=== PATIENT | male | born 1970 | race African-American/Black ===

== ENCOUNTER 2024-04-21 04:19 | Inpatient (IN) | payer OTHER ==
[~2024-04-21] VITALS: Ht 177.8 cm; Wt 123.8 kg
[2024-04-21] MEDS ORDERED: SODIUM CHLORIDE 0.9% 100 ML ONE (04:41)
[2024-04-21] MEDS ORDERED: IOHEXOL 350 MG/ML 100 ML VIAL ONE (04:41)
[2024-04-21 05:04] LABS: BASOPHILS % (AUTO) 0.8 % (0.0-2.0); EOSINOPHILS % (AUTO) 3.2 % (1.0-6.0); HEMATOCRIT 43.6 % (41-53); HEMOGLOBIN 14.9 g/dL (13.5-17.5); LYMPHOCYTES # (AUTO) 3.8 K/uL (1.0-4.8); LYMPHOCYTES % (AUTO) 37.4 % (22.0-44.0); MEAN CORPUSCULAR HGB CONC 34.1 G/dL (31.0-37.0); MEAN CORPUSCULAR VOLUME 94 fL (80-100); MONOCYTES # (AUTO) 1.2 K/uL (0.1-1.0); MONOCYTES % (AUTO) 11.8 % (2.0-9.0); NEUTROPHILS # (AUTO) 4.8 K/uL (1.8-7.7); NEUTROPHILS % (AUTO) 46.8 % (40.0-70.0); PLATELET COUNT (AUTO) 254 K/uL (150-450); RED BLOOD CELL COUNT(AUTO) 4.64 MIL/uL (4.50-5.90); RED CELL DISTRIBUTION WIDTH 13.7 % (11.5-14.5); WHITE BLOOD COUNT (AUTO) 10.2 K/uL (4.5-11.0)
[2024-04-21 05:13] LABS: ANION GAP 8 mmol/L (8-16); CALCIUM, TOTAL 8.3 mg/dL (8.8-10.5); CARBON DIOXIDE 28 mmol/L (22-29); CHLORIDE 104 mmol/L (98-107); CREATININE 1.06 mg/dL (0.60-1.30); GLOMERULAR FILTR. RATE CALC > 60 mL/min (>60); GLUCOSE,RANDOM 86 mg/dL (70-110); POTASSIUM 3.7 mmol/L (3.5-5.1); SODIUM SERUM 140 mmol/L (136-145); UREA NITROGEN, BLOOD 7 mg/dL (7-18)
[2024-04-21 05:15] LABS: PROTHROMBIN TIME 11.4 SEC (9.4-11.6)
[2024-04-21 05:19] LABS: ALANINE AMINOTRANSFERASE 27 U/L (12-78); ALBUMIN 3.6 g/dL (3.4-5.0); ALKALINE PHOSPHATASE 97 U/L (46-116); ASPARTATE AMINOTRANSFERASE 48 U/L (15-37); BILIRUBIN,TOTAL 0.5 mg/dL (0.1-1.0); TOTAL PROTEIN, SERUM 6.9 g/dL (6.4-8.2)
[2024-04-21] MEDS: LISINOPRIL 10 MG TABLET PO ONE (05:29)
[2024-04-21] MEDS: ASPIRIN 81 MG CHEWABLE TABLET PO ONE (05:29)
[2024-04-21 05:34] LABS: TROPONIN I-HIGH SENSITIVITY 7 ng/L (<76)
[2024-04-21 06:45] LABS: APPEARANCE,URINE CLEAR (CLEAR); BILIRUBIN,URINE NEGATIVE (NEGATIVE); COLOR,URINE LIGHT YELLOW (YELLOW); GLUCOSE, URINE (UA) NEGATIVE (NEGATIVE); KETONES,URINE NEGATIVE (NEGATIVE); LEUKOCYTE ESTERASE ,URINE NEGATIVE (NEGATIVE); NITRATE,URINE NEGATIVE (NEGATIVE); OCCULT BLOOD,URINE NEGATIVE (NEGATIVE); PROTEIN,URINE TRACE mg/dL (NEGATIVE); SPECIFIC GRAVITIY, URINE 1.039 (1.003-1.030); UROBILINOGEN,URINE <=1.0 mg/dL (<=1.0)
[2024-04-21 06:52] LABS: ALCOHOL, URINE DRUG SCREEN NEGATIVE (NEGATIVE); AMPHET/METH SCREEN,URINE POSITIVE (NEGATIVE); BARBITURATE SCREEN, URINE NEGATIVE (NEGATIVE); BENZODIAZEPINES SCREEN,URINE NEGATIVE (NEGATIVE); CANNABINOID SCREEN,URINE NEGATIVE (NEGATIVE); COCAINE SCREEN,URINE NEGATIVE (NEGATIVE); METHADONE SCREEN, URINE NEGATIVE (NEGATIVE); OPIATE SCREEN,URINE NEGATIVE (NEGATIVE); PHENCYCLIDINE SCREEN,URINE NEGATIVE (NEGATIVE)
[2024-04-21 06:57] LABS: BACTERIA,URINE None Seen /HPF (None Seen); RBC,URINE None Seen /HPF (0-2); WBC,URINE None Seen /HPF (0-5)
[2024-04-21 11:20] VITALS: BP 148/92; PULSE 73; RESP 18; TEMP 97.8; O2SAT 99
[2024-04-21 11:31] LABS: TROPONIN I-HIGH SENSITIVITY 8 ng/L (<76)
[2024-04-21 15:29] VITALS: BP 148/92; PULSE 56; RESP 18; TEMP 98; O2SAT 98
[2024-04-21] MEDS ORDERED: HYDROCODONE/ACETAMINOPHEN 5-325 MG TABLET PO PRN (15:30)
[2024-04-21] MEDS ORDERED: ACETAMINOPHEN 325 MG TABLET PO PRN (15:30)
[2024-04-21] MEDS ORDERED: ZOLPIDEM TARTRATE 5 MG TABLET PO PRN (15:30)
[2024-04-21] MEDS ORDERED: MORPHINE SULFATE 2 MG/ML SYRINGE IVP PRN (15:30)
[2024-04-21] MEDS ORDERED: MAGNESIUM HYDROXIDE SUSPENSION 30 ML UDCUP PO PRN (15:30)
[2024-04-21] MEDS ORDERED: BISACODYL 10 MG RECTAL RECTAL SUPPOSITORY PR PRN (15:30)
[2024-04-21] MEDS ORDERED: ONDANSETRON HCL 4 MG/2 ML VIAL IVP PRN (15:30)
[2024-04-21] MEDS: AmLODIPine BESYLATE 5 MG TABLET PO SCH (15:40)
[2024-04-21] MEDS: HEPARIN SODIUM,PORCINE 5,000 UNITS/ML VIAL SQ SCH (15:40)
[2024-04-21 17:17] LABS: TROPONIN I-HIGH SENSITIVITY 10 ng/L (<76)
[2024-04-21 19:30] VITALS: BP 152/85; PULSE 76; RESP 18; TEMP 98.6; O2SAT 100
[2024-04-21] MEDS: ATORVASTATIN CALCIUM 20 MG TABLET PO SCH (20:37)
[2024-04-21] MEDS: DOCUSATE SODIUM 100 MG CAPSULE PO SCH (20:37)
[2024-04-22 00:19] VITALS: BP 155/89; PULSE 63; RESP 18; TEMP 97.8; O2SAT 99
[2024-04-22 04:38] VITALS: BP 103/49; PULSE 70; RESP 19; TEMP 97.8; O2SAT 95
[2024-04-22 06:43] LABS: BASOPHILS % (AUTO) 0.6 % (0.0-2.0); EOSINOPHILS % (AUTO) 4.6 % (1.0-6.0); HEMATOCRIT 46.1 % (41-53); HEMOGLOBIN 15.5 g/dL (13.5-17.5); LYMPHOCYTES # (AUTO) 2.9 K/uL (1.0-4.8); MEAN CORPUSCULAR HEMOGLOBIN 31.7 pg (26.0-34.0); MEAN CORPUSCULAR HGB CONC 33.6 G/dL (31.0-37.0); MEAN CORPUSCULAR VOLUME 94 fL (80-100); MONOCYTES # (AUTO) 1.1 K/uL (0.1-1.0); MONOCYTES % (AUTO) 12.4 % (2.0-9.0); NEUTROPHILS # (AUTO) 4.2 K/uL (1.8-7.7); NEUTROPHILS % (AUTO) 48.4 % (40.0-70.0); PLATELET COUNT (AUTO) 243 K/uL (150-450); RED BLOOD CELL COUNT(AUTO) 4.88 MIL/uL (4.50-5.90); RED CELL DISTRIBUTION WIDTH 13.4 % (11.5-14.5); WHITE BLOOD COUNT (AUTO) 8.6 K/uL (4.5-11.0)
[2024-04-22 07:13] LABS: ANION GAP 4 mmol/L (8-16); CALCIUM, TOTAL 8.4 mg/dL (8.8-10.5); CARBON DIOXIDE 28 mmol/L (22-29); CHLORIDE 105 mmol/L (98-107); CHOL/HDL RATIO 2.4 (4.2-7.3); CHOLESTEROL 139 mg/dL (131-200); CREATININE 0.95 mg/dL (0.60-1.30); GLOMERULAR FILTR. RATE CALC > 60 mL/min (>60); GLUCOSE,RANDOM 96 mg/dL (70-110); HDL CHOLESTEROL 58 mg/dL (40-60); LDL CHOL (CALC.) 73 mg/dL (0-130); POTASSIUM 3.5 mmol/L (3.5-5.1); SODIUM SERUM 137 mmol/L (136-145); THYROID STIMULATING HORMONE 1.47 uIU/mL (0.36-3.74); TRIGLYCERIDES 42 mg/dL (15-150); UREA NITROGEN, BLOOD 11 mg/dL (7-18)
[2024-04-22 07:36] VITALS: BP 151/100; PULSE 80; RESP 18; TEMP 98.8; O2SAT 100
[2024-04-22 07:44] VITALS: BP 151/89; PULSE 65; RESP 18; TEMP 98.8; O2SAT 99
[2024-04-22] MEDS: PANTOPRAZOLE SODIUM 40 MG DR TABLET PO SCH (08:26)
[2024-04-22] MEDS: ASPIRIN 81 MG CHEWABLE TABLET PO SCH (08:26)
[2024-04-22] MEDS ORDERED: AMLO-257 PO (10:02)
== END 2024-04-22 15:30 | disposition home or self-care (01) | DRG 52 ==
LOC: EMS 04:19 → EDH 06:22 → 5S 11:50
PROVIDERS: ADMIT Internal Medicine; ATTEND Internal Medicine
DX: G92.9 Unspecified toxic encephalopathy (principal); E11.9 Type 2 diabetes mellitus without complications; E66.9 Obesity, unspecified; I10 Essential (primary) hypertension; I16.0 Hypertensive urgency; F15.10 Other stimulant abuse, uncomplicated; Z68.39 Body mass index [BMI] 39.0-39.9, adult; F17.200 Nicotine dependence, unspecified, uncomplicated
CPT/HCPCS: 70496; 70498; 71045; 80048; 80053; 80061; 80307; 81001; 82948; 84443; 84484; 85025; 85610; 85730; 92610; 93005; 93880; 97116; 97162; 99285; G0378; J1644; J7050; 36415-L1; 36415-TC; 70450; 70450-TC

== ENCOUNTER 2025-01-01 18:31 | Emergency (ER) | payer OTHER ==
[~2025-01-01] VITALS: Ht 177.8 cm; Wt 108.2 kg
[~2025-01-01 18:31] MED LIST: AMLO-257 PO
[2025-01-01 19:00] VITALS: BP 119/77; PULSE 101; RESP 18; TEMP 97.3; O2SAT 97
[2025-01-01] MEDS: PERTUSS(ACELL),DIPH,TET/PF 0.5 ML SYRINGE [ADULT] IM. ONE (19:15)
== END 2025-01-01 19:48 | disposition home or self-care (01) ==
LOC: EMS 18:56
DX: S81.832A Puncture wound without foreign body, left lower leg, initial encounter (principal); S41.132A Puncture wound without foreign body of left upper arm, initial encounter; I10 Essential (primary) hypertension; E11.9 Type 2 diabetes mellitus without complications; F15.90 Other stimulant use, unspecified, uncomplicated; Z79.899 Other long term (current) drug therapy; W54.0XXA Bitten by dog, initial encounter; Y93.89 Activity, other specified; Y92.89 Other specified places as the place of occurrence of the external cause; Y99.8 Other external cause status
CPT/HCPCS: 82962; 90471; 90715; 99283